=== PATIENT | female | born 1985 | race Two or more races ===

== ENCOUNTER 2020-04-14 04:22 | Day surgery (SDC) | payer OTHER ==
[2020-04-13 13:34] VITALS: BMI 29.9
--- NOTE | 2020-04-14 13:15 | HP ---
Admitting History and Physical - Admission Chief Complaint: for btl History Source: Patient Limitations to Obtaining History: No Limitations - Past Medical History BAND SAWYER: No: Alzheimer's, CVA, Dementia, Migraine, Multiple Sclerosis, Peripheral Neuropathy, Parkinson's, Seizure, Syncope, TIA, Vertigo, Other Cardiovascular: No: AFIB, Aneurysm, Aortic Insufficiency, Aortic Stenosis, CAD, CHF, Deep Vein Thrombosis, HTN, Hyperlipdemia, NV, Mitral Insufficiency, Mitral Stenosis, Murmur, Pulmonary Hypertension, Other Pulmonary: No: Asthma, Bronchitis, Cancer, COPD, O2 Dependent, Pneumonia, Previously Intubated, Pulmonary Embolus, Pulmonary Fibrosis, Sleep Apnea, Other Gastrointestinal: No: Ascites, Cancer, Constipation, Crohn's Disease, Diverticulitis, Diverticulosis, Esophageal Varices, Gastritis, GERD, GI Bleed, Hemorrhoids, Hiatal Hernia, Inflamatory Bowel Disease, Irritable Bowel Disease, Pancreatitis, Peptic Ulcer Disease, Ulcerative Colitis, Other Hepatobiliary: No: Cirrhosis, Cholelithiasis, Cholecystitis, Choledocholit hiasis, Hepatitis A, Hepatitis B, Hepatitis C, Other Renal/: No: Renal Failure, Renal Inusuff, BPH, Cancer, Hematuria, Hemodialysis, Neurogenic Bladder, Renal Calculi, UTI, Other Reproductive: No: Ectopic , Endometriosis, Fibroids, PID, Polycystic Ovary Syndrome, Postmenopausal, Other ...LMP: 03/30/20 ...: No Heme/Onc: No: Anemia, B12 Deficiency, Bleeding Disorder, Cancer, Current Chemotherapy, Current Radiation Therapy, Hemochromatosis, Hypercoaguable State, Myeloproliferative Synd, Sickle Cell Disease, Sickle Cell Trait, Thrombocytopenia, Other Infectious Disease: Yes: Other. No: AIDS, C-Diff, Herpes Zoster, HIV, MRSA, S TD's, Tuberculosis, VREF Psych: No: Addictions, Anxiety, Bipolar, Depression, Panic, Psychosis, Schizophrenia, Other Musculoskeletal: No: Bursitis, Chronic low back pain, Hemiparesis, Hemiplegia, Osteoarthritis, Paraplegia, Other Rheumatology: No: Fibromyalgia, Gout, Lupus, Rheumatoid Arthritis, Sarcoidosis, Vasculitis, Other ENT: No: Allergic Rhinitis, Sinusitis, Other Endocrine: Yes: Diabetes Mellitus. No: [place]'s Disease, Yaz's Disease, Diabetes Insipidus, Hyperparathyroidism, Hyperthyroidism, Hypothyroidism, Osteopenia, SIADH, Other Dermatology: No: Basal Cell, Cellulitis, Eczema, Melanoma, Psoriasis, Squamous Cell, Other - Past Surgical History Past Surgical History: Yes: - Advance Directives Advance Directives: Yes: Living Will - Smoking History Smoking history: Never smoked Have you smoked in the past 12 months: No If you are a former smoker, when did you quit?: 07/23/2009 - Alcohol/Substance Use Hx Alcohol Use: No History of Substance Use: reports: None - Social History Usual Living Arrangement: Yes: With Significant Other Do you think of yourself as: Straight/Heterosexual ADL: Independent History of Recent Travel: No Home Medications - Allergies Allergies/Adverse Reactions: Allergies Allergy/AdvReac Type Severity Reaction Status Date / Time No Known Drug Allergies Allergy Verified 04/14/20 12:08 - Home Medications Home Medications: Ambulatory Orders Glyburide 1 tab PO HS 12/31/19 Family Medical History Family History: Denies Review of Systems - Review of Systems Constitutional: reports: No Symptoms Eyes: reports: No Symptoms HENT: reports: No Symptoms Neck: reports: No Symptoms Cardiovascular: reports: No Symptoms Respiratory: reports: No Symptoms Gastrointestinal: reports: No Symptoms Genitourinary: reports: No Symptoms Breasts: reports: No Symptoms Reported Musculoskeletal: reports: No Symptoms Integumentary: reports: No Symptoms Neurological: reports: No Symptoms Endocrine: reports: No Symptoms Hematology/Lymphatic: reports: No Symptoms Psychiatric: reports: No Symptoms Physical Examination Vital Signs: Vital Signs Temperature 97.8 F 04/14/20 12:09 Pulse Rate 65 04/14/20 12:09 Respiratory Rate 18 04/14/20 12:09 Blood Pressure 138/70 04/14/20 12:09 O2 Sat by Pulse Oximetry (%) 99 04/14/20 12:09 Constitutional: Yes: Well Nourished, No Distress, Calm Eyes: Yes: WNL, Conjunctiva Clear, EOM Intact HENT: Yes: WNL, Atraumatic, Normocephalic Neck: Yes: WNL, Supple, Trachea Midline Cardiovascular: Yes: WNL, Regular Rate and Rhythm Respiratory: Yes: WNL, Regular, CTA Bilaterally Gastrointestinal: Yes: WNL, Normal Bowel Sounds, Soft ...Rectal Exam: Yes: WNL Renal/: Yes: WNL Musculoskeletal: Yes: WNL Extremities: Yes: WNL Edema: No Integumentary: Yes: WNL Neurological: Yes: WNL, Alert, Oriented ...Motor Strength: WNL Psychiatric: Yes: WNL Labs: CBC, BMP 04/14/20 12:10 Assessment/Plan for btl
[2020-04-14] MEDS ORDERED: ROCURONIUM BROMIDE 50 MG/5 ML SYRINGE ONE (13:25)
[2020-04-14] MEDS ORDERED: fentaNYL CITRATE 250 MCG/5 ML VIAL ONE (13:25)
[2020-04-14] MEDS ORDERED: NEOSTIGMINE METHYLSULFATE 0.5 MG/ML - 10 ML MDV ONE (13:25)
[2020-04-14] MEDS ORDERED: PROPOFOL 20 ML ONE ×3 (13:26→14:31)
[2020-04-14] MEDS ORDERED: MIDAZOLAM HCL 2 MG/2 ML SINGLE DOSE VIAL ONE (13:26)
[2020-04-14] MEDS ORDERED: ceFAZolin SODIUM 1 GM VIAL IVPB ONE (13:39)
[2020-04-14] MEDS ORDERED: LACTATED RINGERS SOLUTION 1,000 ML IV SCH ×2 (13:45→16:15)
[2020-04-14] MEDS ORDERED: IBUPROFEN 800 MG/8 ML IJ IVPB PRN (16:05)
[2020-04-14] MEDS ORDERED: IBUPROFEN 600 MG TABLET (FP) PO PRN (16:05)
[2020-04-14] MEDS ORDERED: ACETAMINOPHEN 325 MG TABLET (FP) PO PRN (16:05)
--- NOTE | 2020-04-14 16:10 | OP ---
Operative Note - Note: Operative Date: 04/14/20 Pre-Operative Diagnosis: voluntary sterilization Operation: laparoscopic btl Findings: sligt omentum adhesion Post-Operative Diagnosis: Same as Pre-op Surgeon: Boo Aly Anesthesia: General Estimated Blood Loss (mls): 5 (no complications ) Operative Report Dictated: Yes
[2020-04-14] MEDS ORDERED: ONDANSETRON 4 MG/2 ML VIAL ONE (16:15)
[2020-04-14] MEDS ORDERED: ONDANSETRON 4 MG/2 ML VIAL IVPUSH ONE (16:31)
[2020-04-14] MEDS ORDERED: IBUPROFEN 600 MG TABLET (FP) PO ONE (17:12)
[2020-04-14 17:36] VITALS: BP 110/74; PULSE 64; TEMP 97.7
--- NOTE | 2020-04-14 19:11 | OP ---
DATE OF OPERATION: 04/14/2020 PREOPERATIVE DIAGNOSIS: Voluntary sterilization. POSTOPERATIVE DIAGNOSIS: Voluntary sterilization. PROCEDURE: Laparoscopic tubal ligation. SURGEON: Boo Aly MD. ANESTHESIOLOGIST: Celestino Aburto MD. ANESTHESIA: General anesthesia. INDICATION: This is a 34-year-old female patient, had previous 2 sections, and patient finally after and the patient had gestational diabetes on the medications during the , and patient agreed, and patient insists on tubal ligation. Patient understood there is a 99% effective rate only. It was fully explained to the patient risk of future ectopic, nonreversible, and 99% effective only. Patient agreed, and patient wants, insists on tubal ligation. Patient had 2 boys and very satisfied, and patient declined any other methods of family planning. DESCRIPTION OF PROCEDURE: Patient was placed on operating table in supine position after general anesthesia was obtained. The patient was placed in lithotomy position . The patient's abdomen and pelvis were prepped and draped in the usual sterile manner. Tenaculum was placed into the patient's vagina and tenaculum was placed into the patient's cervix and uterus for maneuvering purpose. So we then proceeded to abdominal part. A Veress needle was inserted into the umbilicus, and 5-mm trocar was inserted, and camera was inserted into the abdominal cavity. There were fine adhesions on the omentum adhesed to the anterior abdominal wall. Uterine cavity and uterus was seen, and both tubes were visualized, and ovaries were visualized. Then a 2nd trocar put in place from the suprapubic area and then by using LigaSure, and the LigaSure was isthmic end of the fallopian tube on the right side was grasped with a LigaSure and double transected and ligated, and the same thing on the left side was double transected and suture ligated, and good hemostasis, no complications. Patient tolerated the procedure well, and there was some scar tissue from the omentum was lysed away, and good hemostasis, and patient tolerated procedure well. Subcuticular suture was applied to the 5-mm skin area, and the patient was transferred to recovery room in stable condition. MD KEVON HOPE/[id number]
== END 2020-04-14 17:25 | disposition home or self-care (01) ==
LOC: JASU-SURG 04:22
PROVIDERS: ATTEND Obstetrics & Gynecology
PROC: 0U574ZZ Destruction of Bilateral Fallopian Tubes, Percutaneous Endoscopic Approach (ICD-10-PCS; principal; 2020-04-14 13:00)
DX: Z30.2 Encounter for sterilization (principal)
CPT/HCPCS: 36415; 82947; 84703; 86780; 86850; 86900; 86901; 94760